=== PATIENT | female | born 1970 | race Caucasian/White ===

== ENCOUNTER 2017-02-18 12:03 | Emergency (ER) | payer OTHER ==
[~2017-02-18] VITALS: Ht 157.5 cm; Wt 77.1 kg
[2017-02-18] MEDS ORDERED: HUMALOG100 UNIT/2 SC (12:30)
[2017-02-18] MEDS ORDERED: LISINOPRIL-HCT1 EAC1 PO (12:30)
[2017-02-18] MEDS ORDERED: TRESIBA FL100 UNIT/1 SC (12:31)
--- NOTE | 2017-02-18 12:40 | ED CARDIAC/CP/PALPITATIONS ---
History of Present Illness General Chief Complaint: Chest Pain Stated Complaint: CHEST PAIN Source: patient, family, old records Exam Limitations: no limitations Vital Signs & Intake/Output Vital Signs & Intake/Output Vital Signs Date Time Temp Pulse Resp B/P B/P Pulse O2 O2 Flow FiO2 Mean Ox Delivery Rate 02/18 1626 98.1 70 16 154/94 96 Room Air 02/18 1416 98.0 79 16 133/64 98 Room Air 02/18 1257 98 Room Air 02/18 1210 98.6 87 20 145/82 98 Room Air Allergies Coded Allergies: No Known Allergies (02/18/17) Reconcile Medications Insulin Degludec (Tresiba Flextouch U-100) 100 UNIT/ML (3 ML) INSULN.PEN ( Unknown Dose) SC SEE SLIDING SCALE DM (Reported) Insulin Lispro (Humalog) 100 UNIT/ML VIAL (Unknown Dose) SC SEE SLIDING SCALE DM (Reported) Lisinopril/Hydrochlorothiazide (Lisinopril-Hctz 20-25 MG Tab) 20 MG-25 MG TABLET 1 TAB PO DAILY HTN (Reported) Triage Note: PT TO ED C/O CHEST PAIN SINCE AROUND 0630 THIS AM AFTER WAKING UP. STATES CONSTANT SINCE, BUT BETTER NOW. STATES RADIATES UNDER RIGHT BREAST. ALSO C/O BACK PAIN. NO SOB OR DIFF BREATHING NOTED. C/O NAUSEA. TOOK TYLENOL AROUND 0800 AND 81MG ASA AROUND 1015. EKG DONE. PT TAKEN TO ROOM 22. Triage Nurses Notes Reviewed? yes Onset: Abrupt Duration: hour(s): (4), better, constant Timing: single episode today Quality/Severity: mild, moderate, aching, burning Location: central Radiation: no radiation Activities at Onset: none Prior Chest Pain/Card Workup: no prior chest pain Aspirin Today: 325 mg x 1 Associated Symptoms: denies HPI: 47-year-old female history of hypertension I cholesterol diabetes presents complaining of right-sided chest pain that began around 6:30 this morning. Patient denies history of similar episodes in the past. 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 The patient states she woke up this morning in her normal state of health had breakfast without problem. She denies history of similar episodes in the past a recent cough no pain with inspiration the symptoms are not worse with exertion or change in position. She took Tylenol and aspirin this morning without effect. She denies any dizziness light has palpitations. She does not smoke no cough hemoptysis leg swelling or recent immobility notes all pain nausea vomiting no jaw pain arm pain or back pain. (ELAINE VELÁSQUEZ) Past History Travel History Traveled to [place] past 21 day No Medical History Any Pertinent Medical History? see below for history Cardiovascular: hypertension, hyperlipidemia Endocrine: diabetes Surgical History Surgical History: non-contributory Psychosocial History What is your primary language Indian Tobacco Use: Quit >30 days ago ETOH Use: denies use Illicit Drug Use: denies illicit drug use Family History Hx Contributory? No (ELAINE VELÁSQUEZ) Review of Systems Review of Systems Constitutional: Reports: see HPI. All Other Systems: Reviewed and Negative Comments Review of systems: See HPI, All other systems negative. Constitutional, no chills no fever, no malaise HEENT: No visual changes no sore throat no congestion, no ear pain Cardiovascular: chest pain , no palpitation Skin: no rashes, no change in skin Respiratory: No dyspnea no cough no sputum GI: No nausea no vomiting, no diarrhea, no bloating/constipation : No dysuria Muscle skeletal: No joint pain, no back pain, no neck pain, Neurologic: no headache Psych: No stress no depression,. Heme/endocrine: No bruising no bleeding Immunology: No lymphadenopathy (ELAINE VELÁSQUEZ) Physical Exam Physical Exam General Appearance: well developed/nourished, alert, awake Cardiovascular: regular rate/rhythm Comments: Well-developed well-nourished person in no acute distress HEENT: Normal EENT exam; PERRL, EOMI,. HEAD is atraumatic. moist mucous membranes. Neck: Supple, normal range of motion Back: Nontender, no CVA tenderness. Full range of motion Cardiovascular: Regular rate and rhythms no murmurs rubs or gallops, normal JVP Respiratory: Chest nontender.There were no bony deformities, no asymmetry. No respiratory distress. Patient speaking in full complete sentences. Breath sounds clear to auscultation bilaterally: NO W/R/R Abdomen: Soft, nontender nondistended, no appreciable organomegaly. Normal bowel sounds. No rebound/guarding, No appreciable enlargement of the abdominal aorta, No ascites. Extremity: No edema, full range of motion of extremities, Neuro: Alert oriented x3, motor sensory normal, There were no obvious focal neurologic abnormalities. Skin: No appreciable rash on exposed skin, skin is warm and dry. Psych: Mood and affect is normal, memory and judgment is normal. Core Measures ACS in differential dx? Yes Severe Sepsis Present: No Septic Shock Present: No (LAURENCE DUTTON,ELAINE) Progress Differential Diagnosis: AMI, aortic dissection, atrial fibrillation, cholecystitis, musculoskeletal pain, myocarditis, pancreatitis, pericarditis, pneumonia, pneumothorax, pulmonary embolism, PUD/GERD, unstable angina Plan of Care: Orders Procedure Date/time Status Regular Diet 02/18 D Active TROPONIN LEVEL 02/18 1630 Complete EKG 02/18 1630 Active TROPONIN LEVEL 02/18 1217 Complete PROTHROMBIN TIME 02/18 1217 Complete HUMAN BETA HCG SCREEN 02/18 1217 Complete COMPREHENSIVE METABOLIC PANEL 02/18 1217 Complete CBC WITHOUT DIFFERENTIAL 02/187 Complete EKG 02/18 1207 Active Laboratory Tests 02/18/17 1617: Troponin I < 0.01 02/18/17 1230: Anion Gap 10, Estimated GFR > 60, BUN/Creatinine Ratio 13.3, Glucose 329 H, Calcium 9.1, Total Bilirubin 0.8, AST 25, ALT 38, Alkaline Phosphatase 90, Troponin I < 0.01, Total Protein 6.6, Albumin 3.8, Globulin 2.8, Albumin/ Globulin Ratio 1.4, Total Beta HCG NEGATIVE, PT 10.4, INR 0.99, CBC w Diff NO MAN DIFF REQ, RBC 4.27, MCV 75.5 L, MCH 24.3 L, RDW 15.7 H, MPV 8.7, Gran % 73.5, Lymphocytes % 18.3 L, Monocytes % 6.5, Eosinophils % 1.1, Basophils % 0.6 , Absolute Granulocytes 5.6, Absolute Lymphocytes 1.4, Absolute Monocytes 0.5, Absolute Eosinophils 0.1, Absolute Basophils 0, PUBS MCHC 32.2 L Labs ordered old records reviewed patient is declining and refusing anything for pain when offered currently 5 out of 10 discussed with her plan of care Case discussed Dr. castillo agrees with plan. Discussed with patient and her all her lab results to date need for repeat troponin which they aren't agreement with. Patient denies any complaints on repeat evaluation 02/18/2017 2:59:35 PM patient resting in no apparent distress remains normal sinus on the monitor On repeat evaluation patient denies any symptoms resting comfortably I discussed with the patient at length all of their results. I had an extensive conversation regarding need for close follow up with their primary care physician this week as well as return precautions. I answered all of their questions, they feel comfortable with the plan and follow-up care. (ELAINE VELÁSQUEZ) Diagnostic Imaging: Viewed by Me: Radiology Read. Discussed w/RAD: Radiology Read. Radiology Impression: PATIENT: JACQUELINE SANCHEZ PRESENT AGE: 47 PATIENT ACCOUNT NO: [id number] : 71 LOCATION: [facility] ORDERING PHYSICIAN: ELAINE DUTTON SERVICE DATE: 02/18/17 EXAM TYPE: RAD - XRY- PORTABLE CHEST XRAY EXAMINATION: XR PORTABLE CHEST CLINICAL INFORMATION: CHF. Right-sided chest pain. COMPARISON: Chest radiograph 07/23/2011. TECHNIQUE: Portable frontal view of the chest was obtained. FINDINGS: Lungs are clear and well expanded. There is no focal consolidative disease, pleural effusion, or pneumothorax. The cardiac silhouette and upper mediastinal contours are normal. No acute osseous finding. IMPRESSION: Normal chest radiograph. DICTATED BY: SERGEI LOCKE MD DATE/TIME DICTATED:02/18/171342 SURGICAL ASST: ELIE DATE/TIME TRANSCRIBED:02/18/171342 CONFIDENTIAL, DO NOT COPY WITHOUT APPROPRIATE AUTHORIZATION. <Electronically signed in Other Vendor System> SIGNED BY: SERGEI LOCKE MD 02/18/17 1348 Initial ED EKG: normal intervals, normal p-waves, normal QRS complex, normal sinus rhythm (80) Prior EKG: unchanged Rhythm Strip: normal sinus rhythm (ELAINE VELÁSQUEZ) Departure Departure Time of Disposition: 1714 Disposition: HOME OR SELF CARE Condition: Stable Clinical Impression Primary Impression: Atypical chest pain Referrals: MATTHIAS ROMO,ERIKA Garrison (PCP/Family) Additional Instructions: follow up with your primary care physician as well as electrical maintenance technician this week, return with any concerns Departure Forms: Customer Survey General Discharge Information (ELAINE VELÁSQUEZ) PA/[employer] Co-Sign Statement Statement: ED Attending supervision documentation- [] I saw and evaluated the patient. I have also reviewed all the pertinent lab results and diagnostic results. I agree with the findings and the plan of care as documented in the PA's/[employer]'s documentation. [X] I have reviewed the ED Record and agree with the PA's/[employer]'s documentation. [] Additions or exceptions (if any) to the PAs/[employer]'s note and plan are summarized below: [] (VENANCIO ROMO,TREY) Critical Care Note Critical Care Note Critical Care Time: non-applicable (ELAINE VELÁSQUEZ)
[2017-02-18 12:49] LABS: PT 10.4 SEC (9.4-12.5)
[2017-02-18 12:51] LABS: ABSOLUTE BASOPHIL COUNT 0 /CUMM (0.0-0.2); ABSOLUTE EOSINOPHIL COUNT 0.1 /CUMM (0.0-0.7); ABSOLUTE GRANULOCYTE CT 5.6 /CUMM (1.4-6.5); ABSOLUTE LYMPH COUNT 1.4 /CUMM (1.2-3.4); ABSOLUTE MONOCYTE COUNT 0.5 /CUMM (0.10-0.60); BASOPHIL % 0.6 % (0.0-2.0); EOSINOPHIL % 1.1 % (0-5); GRANULOCYTE % 73.5 % (42.2-75.2); HEMATOCRIT 32.2 % (37-47); MEAN CORPUSCULAR HGB 24.3 PG (27.0-31.0); MEAN CORPUSCULAR HGB CONC 32.2 G/DL (33.0-37.0); MEAN CORPUSCULAR VOLUME 75.5 FL (81.0-99.0); MEAN PLATELET VOLUME 8.7 FL (7.4-10.4); PLATELET COUNT 360 /CUMM (130-400); RBC DISTRIBUTION WIDTH 15.7 % (11.5-14.5); RED BLOOD CELL CT 4.27 /CUMM (4.20-5.40); WHITE BLOOD CELL COUNT 7.6 /CUMM (4.8-10.8)
--- NOTE | 2017-02-18 13:48 | RADIOLOGY REPORT ---
EXAMINATION: XR PORTABLE CHEST CLINICAL INFORMATION: CHF. Right-sided chest pain. COMPARISON: Chest radiograph 07/23/2011. TECHNIQUE: Portable frontal view of the chest was obtained. FINDINGS: Lungs are clear and well expanded. There is no focal consolidative disease, pleural effusion, or pneumothorax. The cardiac silhouette and upper mediastinal contours are normal. No acute osseous finding. IMPRESSION: Normal chest radiograph.
[2017-02-18 16:26] VITALS: BP 154/94
== END 2017-02-18 17:24 ==
LOC: ERH 12:03
PROVIDERS: Physician Assistant Medical
DX: R07.89 Other chest pain (principal)
CPT/HCPCS: 93005; 93010